=== PATIENT | male | born 1980 | race Caucasian/White ===

== ENCOUNTER 2022-05-16 16:24 | Emergency (ER) | payer BC, SELFPAY ==
--- NOTE | ~2022-05-16 | XR_ITS ---
XR chest 2V DATE: 05/16/2022 17:37 INDICATION: Midsternal chest pain radiating to upper right abdomen TECHNIQUE: PA and lateral views COMPARISON: None FINDINGS: Heart size is within normal range. No hilar or mediastinal enlargement. 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 No pulmonary infiltrate or consolidation, pleural effusion or pulmonary va scular congestion or pneumothorax is detected. Likely chronic mild loss of height and anterior wedging of a lower thoracic vertebral body. Osteopeni a is suggested. IMPRESSION: No active cardiopulmonary disease Osteopenia is suggested. Mild to moderate loss of height of a lower thoracic vertebral body. Reviewed, dictated and finalized at location A. NTORY SPECIALIST MANAGER IMPRESSION: No active cardiopulmonary disease Osteopenia is suggested. Mild to moderate loss of height of a lower thoracic ve rtebral body.
--- NOTE | 2022-05-16 16:26 | ECG_ITS ---
Measurements Intervals [place] Rate: 113 P: 48 OR: 187 QRS: -3 QRSD: 94 T: 65 QT: 319 QTc: 438 Interpretive Statements SINUS TACHYCARDIA VOLTAGE CRITERIA FOR LVH MINIMAL Q WAVES- HIGH LATERAL LEADS BASELINE WANDER- V2 ABNORMAL ECG NO PREVIOUS ECG AVAILABLE FOR COMPARISON Electronically Signed On 05-17-2022 8:53:14 SENIOR COST ACCOUNTANT by Jeancarlos London D.O.
[2022-05-16 16:41] VITALS: BP 168/113; PULSE 100; RESP 17; TEMP 36.7; O2SAT 98
[2022-05-16 17:02] LABS: Basophils Percent Auto 0.3 % (0.2-1.2); Eosinophils Absolute Auto 0.1 K/mm3 (0-0.3); Eosinophils Percent Auto 0.8 % (0-4.4); Hematocrit 48.2 % (42.0-52.0); Hemoglobin 16.7 g/dL (14.0-18.0); Immature Granulocyte Absolute 0.03 K/mm3 (0.00-0.031); Immature Granulocyte Percent A 0.3 % (0-0.5); Lymphocytes Absolute Auto 2.07 K/mm3 (0.9-3.2); Lymphocytes Percent Auto 17.3 % (18.3-44.2); Mean Corpuscular HGB Conc 34.6 g/dl (32-36); Mean Corpuscular Hemoglobin 29.8 pg (26-34); Mean Corpuscular Volume 86.1 fl (80-100); Mean Platelet Volume 8.5 fl (7.4-10.4); Monocytes Percent Auto 8.4 % (2.6-8.5); Neutrophils Absolute Auto 8.7 K/mm3 (1.3-6.7); Neutrophils Percent Auto 72.9 % (45.5-73.1); Platelet Count Result 291 k/mm3 (150-375); Red Cell Distribution Width 13.1 % (11.5-14.5)
[2022-05-16 17:16] LABS: Alanine Aminotransferase 73 U/L (6-50); Albumin Level 4.7 g/dL (3.5-5.1); Alkaline Phosphatase 102 U/L (38-126); Anion Gap 8 mmol/L (8-16); Aspartate Amino Transferase 66 U/L (17-59); Bilirubin,Total 0.8 mg/dL (0.2-1.3); Blood Urea Nitrogen 12 mg/dL (9-20); Calcium 9.4 mg/dL (8.4-10.2); Carbon Dioxide 26 mmol/L (22-30); Chloride 101 mmol/L (98-107); Estimated CRCL calculation 87 ml/min; Estimated Glomerular Filt Rate > 60; Glucose 104 mg/dL (65-110); Lipase 63 U/L (23-300); Potassium 3.6 mmol/L (3.4-5.0); Sodium 135 mmol/L (137-145)
[2022-05-16 17:17] LABS: Prothrombin Time 12.8 Seconds (11.1-14.7)
[2022-05-16 17:18] LABS: Partial Thromboplastin Time 25.9 SECONDS (22.3-36.8)
[2022-05-16 17:27] LABS: Troponin I < 0.012 ng/mL (0.000-0.034)
[2022-05-16 20:23] LABS: Troponin I < 0.012 ng/mL (0.000-0.034)
--- NOTE | 2022-05-16 20:38 | ED.GENADULT ---
HPI - General Adult General Chief complaint: Chest Pain Stated complaint: CP Time Seen by Provider: 05/16/22 20:21 History of Present Illness HPI narrative: This is a 41-year-old male presenting ED with a chief complaint of chest pain. Patient started to have burning in the epigastric area and up the center of his chest at 2:00 a.m. in the morning. He then moved sofa and sat upright in the pain improved. However he woke up again at 4:00 a.m. when he had more pain more on the right side. he then had 1 episode of vomiting and the pain completely resolved. He has not had any pain throughout the day but his was concerned and made him come to the hospital for evaluation. Patient does have history of heartburn in the past. Patient denies any nausea or vomiting or diarrhea. Denies fever chills. He denies recurrent episodes of chest pain, diaphoresis or shortness of breath. Related Data Allergies Allergy/AdvReac Type Severity Reaction Status Date / Time No Known Allergies Allergy Verified 05/16/22 20:45 Review of Systems Review of Systems: CONSTITUTIONAL: Denies night sweats. EYES: No eye pain ENT: Denies rhinorrhea CARDIOVASCULAR: Denies palpitations RESPIRATORY: Denies hemoptysis GASTROINTESTINAL: Denies hematemesis GENITOURINARY: Denies hematuria. SKIN: Denies rash MUSCULOSKELETAL: Denies myalgia. NEUROLOGIC: Denies weakness. PSYCHIATRIC: Denies delusions PMFSH Social History Social History Social History: Patient drinks alcohol occasionally, uses chew tobacco, denies drug use Exam Narrative: APPEARANCE: No apparent distress. patient is polite pleasant during the interview Head: atraumatic. EYES: EOMI, NOSE: Atraumatic NECK: Trachea midline RESPIRATORY: No increased rate of breathing, clear to auscultation bilaterally CARDIOVASCULAR: RRR, no peripheral edema ABDOMINAL: Non-distended, nontender no guarding or rebound MUSCULOSKELETAl: No obvious deformities NEURO: Alert. Moving 4/4 extremities SKIN:: Warm, dry. Normal color PSYCHIATRIC: Normal affect Course Vital Signs Vital signs: Vital Signs Temperature 98.0 F 05/16/22 16:41 Pulse Rate 100 05/16/22 16:41 Respiratory Rate 17 05/16/22 16:41 Blood Pressure 168/113 H 05/16/22 16:41 Pulse Oximetry 98 05/16/22 16:41 Oxygen Delivery Room Air 05/16/22 16:41 Temperature 98.0 F 05/16/22 16:41 Pulse Rate 100 05/16/22 16:41 Respiratory Rate 17 05/16/22 16:41 Blood Pressure 168/113 H 05/16/22 16:41 Pulse Oximetry 98 05/16/22 16:41 Oxygen Delivery Room Air 05/16/22 16:41 Medical Decision Making MDM Narrative Medical decision making narrative: this is a 41-year-old male presenting ED with the peer of epigastric and chest burning resolved after episode of vomiting. His story is very consistent with gastritis/ GERD. Patient has been asymptomatic throughout the entire day and came to hospital his want him to be evaluated for heart attack. patient's lab work was significant for a mildly elevated white blood cell count 12 which is of unknown etiology or significance. There is no evidence of infection at this time. Mild elevations in AST/ALT. Delta troponins are undetectable. Chest x-ray showed no acute cardiopulmonary process. EKG interpretation: Rhythm [sinus], Rate 113, [place] -[normal], [place] -[normal], QRS [narrow], QTC [normal], T waves -[negative for concerning inversions], ST Segments - [Negative for concerning elevations] Final interpretations: sinus tachycardia patient was monitored throughout his stay and his heart rate was not tachycardic outside his initial EKG. Patient's EKGs and labs are reviewed without significant high risk changes. Cardiac risk factors reviewed. Heart score is <4 and it iss reasonable for further risk stratification to be performed as outpatient. Pain was not sudden or maximal onset not tearing or ripping
[2022-05-16 20:52] VITALS: BP 168/97; PULSE 90; PULSE 94; RESP 19; O2SAT 97
== END 2022-05-16 21:10 | disposition home or self-care (01) ==
PROVIDERS: Emergency Medicine; Emergency Provider Emergency Medicine
DX: R07.89 Other chest pain (principal); K21.9 Gastro-esophageal reflux disease without esophagitis
CPT/HCPCS: 36415; 71046; 80053; 83690; 84484; 85025; 85610; 85730; 93005; 99284